=== PATIENT | female | born 1965 | race Caucasian/White ===

== ENCOUNTER 2025-06-20 19:28 | Emergency (ER) | payer BC, SELFPAY ==
[2025-06-20 19:32] VITALS: BP 148/84; PULSE 65; RESP 16; TEMP 36.6; O2SAT 97; BMI 26.3
[2025-06-20 19:56] LABS: Appearance Urine Turbid (Clear)
--- NOTE | 2025-06-20 20:35 | ED.GENADULT ---
HPI - General Adult General Chief complaint: Back Injury/Pain Stated complaint: Pain in Lower Back Time Seen by Provider: 06/20/25 20:33 History of Present Illness HPI narrative: nausea, back pain, especially in lower right. some lower abd cramping. on Friday had some blood in urine, spoke with her urologist today and was advised to be seen. hx of kidney stones. [facility] for urology. last took Aleve at 1500 59-year-old woman presenting to the emergency department with concern of hematuria, right flank pain and lower abdominal pain/cramping. Has been experiencing some nausea it would associate that with the discomfort. Does have a history of kidney stones including retrieval. She can not mention the stent without becoming tearful as that was very miserable experience. There has been some discussion of ?cleaning out? the other kidney as well. She was opting to wait for further problems. Last kidney stone was likely early summer. She does have images from September that show on 1 slice only a couple of stones around 4 mm each in the right renal cortex. Began with some pink urine 2 nights ago and then seemed a little better and then just really hit again today. She had been experiencing some chills as well and then lower abdominal cramping and also flank pain as mentioned. She says she was scolded for taking excessive believe would called in to triage line and recommended to be seen in the emergency department. She did take what sounds like around 400 mg of naproxen sodium at noon and also at 3 today. Both helped a little. Related Data Home Medications ?Medication ?Instructions ?Recorded ?Confirmed atenolol 25 mg tablet 25 mg PO DAILY 06/20/25 06/20/25 Allergies Allergy/AdvReac Type Severity Reaction Status Date / Time No Known Drug Allergies Allergy Verified 06/20/25 19:36 Review of Systems Status of ROS: Reports: 6 or more systems reviewed and unremarkable except as noted in History and below PFSH PFS Social History Smoking Status: Never smoker Do you use any of these nicotine containing products: None How often do you have a drink containing alcohol: never How often do you have six or more drinks on one occasion: Never AUDIT-C Alcohol total score: 0 Non-prescribed substance use: denies use service: No Exam Narrative: Exam Narrative: Pleasant. NAD. Laughs easily. Skin is warm and dry. Breathing easily and lungs appear clear. Heart in regular rate and rhythm. There is right-sided flank pain to percussion. Abdomen is soft and generally sore to palpation across the low abdomen. She is well-perfused peripherally. No edema. Const: Vital Signs, click to edit/add: Vital Signs - 24 hr 06/20/25 19:32 06/20/25 21:54 Temperature 98 F Pulse Rate [Pulse Oximeter] 65 Respiratory Rate 16 Blood Pressure [Ri t Upper Arm] 148/84 H 134/82 Pulse Oximetry 97 Oxygen Delivery Me thod Room Air Documenting provider has reviewed patient's vital signs: yes Course Vital Signs Vital signs: Initial Vital Signs Temperature 98 F 06/20/25 19:32 Temperature Source Temporal Artery Scan 06/20/25 19:32 Pulse Rate 65 06/20/25 19:32 Respiratory Rate 16 06/20/25 19:32 Blood Pressure 148/84 H 06/20/25 19:32 Blood Pressure Mean 105 06/20/25 19:32 Blood Pressure Position Sitting 06/20/25 19:32 Pulse Oximetry 97 06/20/25 19:32 Oxygen Delivery Method Room Air 06/20/25 19:32 Vital Signs Temperature 98 F 06/20/25 19:32 Pulse Rate 65 06/20/25 19:32 Respiratory Rate 16 06/20/25 19:32 Blood Pressure 148/84 H 06/20/25 19:32 Pulse Oximetry 97 06/20/25 19:32 Oxygen Delivery Method Room Air 06/20/25 19:32 Temperature 98 F 06/20/25 19:32 Pulse Rate 65 06/20/25 19:32 Respiratory Rate 16 06/20/25 19:32 Blood Pressure 134/82 06/20/25 21:54 Pulse Oximetry 97 06/20/25 19:32 Oxygen Delivery Method Room Air 06/20/25 19:32 Medications Administered Medications: Discontinued Medications Generic Name Dose Route Start Last Admin Trade Name Freq PRN Reason Stop Dose Admin Sodium Chloride 1,000 mls @ 1,000 mls/hr 06/20/25 21:16 06/20/25 23:06 0.9 % Sodium Chloride 1000 Ml IV 06/20/25 22:15 Infused .Q1H ONE Infusion Ceftriaxone Sodium 1 gm/ 100 mls @ 200 mls/hr 06/20/25 22:31 06/20/25 23:06 Sodium Chloride IVPB 06/20/25 22:32 Infused ONCE ONE Infusion Ondansetron HCl 4 mg 06/20/25 22:31 06/20/25 22:43 Ondansetron Odt 4 Mg Tab PO 06/20/25 22:32 4 mg ONCE ONE Administration Medical Decision Making MDM Narrative Medical decision making narrative: Symptoms seem more consistent with urinary tract infection but certainly a strong history for nephrolithiasis, ureteral stones. Would check urinalysis 1st which is still pending in see if that might be more convincing in direction or another. Could have nephritis though has not had any prodrome to suggest that. Vascular disruption? Is not high risk for this I would think. Mesenteric adenitis, diverticulitis. Pyelonephritis? Urinalysis returns with more signs of inflammation I would say than infection but maybe could be either. I think it would be with her history and concerns of potential next steps being further intervention, I would offer CT imaging. Also check standard labs. CT abdomen pelvis noncontrast independently reviewed by me looks to have a whitish, hazy irregularly shaped lesion in the right mid kidney. I see numerous calcifications throughout the pelvis and with bilateral renal stones but I am not seeing hydronephrosis or might otherwise think that had recently passed a stone. Labs are otherwise are pending Does note later that she had been feeling achy all over. Radiology over-read below INDICATION: Right-sided flank pain and hematuria TECHNIQUE: CT Abdomen and pelvis without i.v. contrast. Coronal and sagittal reformats were obtained. COMPARISON: None FINDINGS: Lower chest: Unremarkable. Liver: Unremarkable. Spleen: Unremarkable. Pancreas: Unremarkable. Gallbladder: Unremarkable. Kidney: Bilateral renal stones are present, measuring up to 4 mm. There is a focus of ill-defined calcification present within the right renal midzone cortex measuring 1.5 cm on axial images and may be a focus of layering milk of calcium within a cyst on coronal reformats. Adrenal: Unremarkable. Bowel: Severe diverticulosis of the sigmoid colon is present with no evidence of diverticulitis. The appendix is normal in appearance and size. Vascular: Unremarkable. Lymph: Unremarkable. Peritoneum: Unremarkable. No pneumoperitoneum is seen. No significant ascites is noted. Pelvis: The patient is status post prior hysterectomy. Soft tissue: Unremarkable. Bone: Unremarkable for age. IMPRESSIONS: 1. No CT correlate for the patient`s symptoms seen. 2. There is a focus of ill-defined calcification present within the right renal midzone cortex measuring 1.5 cm on axial images and may be a focus of layering milk of calcium within a cyst on coronal reformats. This can be confirmed with outpatient renal ultrasound. Dictated by Timothy Curtis MD @ 06/20/2025 9:43:01 PM Reassuring labs other than urinalysis as noted above. Her global symptoms suggest infection. I suppose this could also be some other viral process going on. Would give initial dosing though of Rocephin here as there is this strong stone history and possible infection in the urine. See patient discharge plan for further discussion Can continue to take ibuprofen or naproxen sodium for discomfort. Focus on hydration with water. Prescribing some Zofran from [facility] for nausea and cephalexin as your antibiotic. You did receive a dose of Rocephin here in the emergency department along with normal saline IV fluid. A urine culture will be pending here. We will call you if changes need to be made to your antibiotics. Discuss with your primary care or Urology about potentially obtaining an ultrasound of the right kidney to further characterize that calcific oddity. Suspicion is that it is <del>wearing</del> (layering) calcium within a cyst. You can access your records here through [facility] Return/be seen for marked increase in persistent pain, repeated vomiting, fever, pain lasting more than 5 days Lab Data Lab results reviewed: Yes I reviewed the patient's lab results Labs: Lab Results 06/20/25 06/20/25 Range/Units 07:40 21:45 WBC 6.21 (4.50-11.00) K/uL RBC 4.20 (4.00-5.20) m/uL Hgb 12.3 (12.0-16.0) gm/dL Hct 37.9 (33.0-51.0) % MCV 90 (80-100) fL MCH 29 (26-34) pg MCHC 33 (32-36) gm/dL RDW Coeff of Carmen 12.1 (11.5-15.5) % Plt Count 256 (140-440) K/uL Neut % (Auto) 46.6 (42.0-72.0) % Lymph % (Auto) 40.3 (20-44) % [place] % (Auto) 10.6 (0.0-11.0) % Eos % (Auto) 1.8 (0.0-7.0) % Baso % (Auto) 0.5 (0.0-3.0) % Neut # (Auto) 2.90 (1.7-7.0) K/uL Lymph # (Auto) 2.50 (0.90-2.90) K/uL [place] # (Auto) 0.70 (0.00-0.90) K/UL Eos # (Auto) 0.11 (0.00-0.50) K/uL Baso # (Auto) 0.03 (0.00-0.30) K/uL Abs Immat Gran (auto) 0.01 (0.00-0.30) K/uL Imm/Tot Granulo (auto) 0.2 % Sodium 140 (135-149) mmol/L Potassium 4.0 (3.6-5.1) mmol/L Chloride 106 (96-114) mmol/L Carbon Dioxide 27 (20-32) mmol/L Anion Gap 7 (7-15) mEq/L BUN 18 (7-30) mg/dL Creatinine 0.7 (0.5-1.5) mg/dL Estimated Creat Clear 46.73 Estimated GFR 98 ml/min Glucose 97 (60-115) mg/dL Calcium 9.2 (8.4-10.6) mg/dL Urine Color Yellow (Yellow) Urine Appearance Turbid A (Clear) Urine pH 6.5 (5.0-8.5) Ur Specific [place] 1.020 (1.000-1.030) Urine Protein 1+ A (Negative) Urine Glucose (UA) Negative (Negative) Urine Ketones Negative (Negative) Urine Blood 3+ A (Negative) Urine Nitrite Negative (Negative) Urine Bilirubin Negative (Negative) Urine Urobilinogen 1.0 (0.2-1.0) Ur Leukocyte Esterase 1+ A (Negative) Urine RBC 10-25 A (0-2) Urine WBC 2-5 (0-5) Ur Squamous Epith Cells Moderate A (None-Few) Urine Bacteria Moderate A (None) Discharge Plan Discharge Clinical Impression: UTI (urinary tract infection), Bilateral kidney stones Patient Disposition: Home w/ Parent or Adult Condition: Stable Additional Instructions: Can continue to take ibuprofen or naproxen sodium for discomfort. Focus on hydration with water. Prescribing some Zofran from [facility] for nausea and cephalexin as your antibiotic. You did receive a dose of Rocephin here in the emergency department along with normal saline IV fluid. A urine culture will be pending here. We will call you if changes need to be made to your antibiotics. Discuss with your primary care or Urology about potentially obtaining an ultrasound of the right kidney to further characterize that calcific oddity. Suspicion is that it is wearing calcium within a cyst. You can access your records here through [facility] Return/be seen for marked increase in persistent pain, repeated vomiting, fever, pain lasting more than 5 days Prescriptions: No Action atenolol 25 mg tablet 25 mg PO DAILY Follow Up/Referrals: Brooks Coleman MD [Primary Care Provider, Family Practice] Stand Alone Forms: Sennari Info Instructions
--- OUTSIDE RECORDS SUMMARY | 2025-06-20 21:11 | XMS_ITS | Data Portability ---
Author Organization [place] [facility], [facility] Address [address] [facility] [address] [place] [address] Assessment No assessment recorded. Plan of Treatment Reminders Order Date Submit Date Provider Last Modified By Organization Details Last Modified Time Details Appointments None record ed. Lab None record ed. Referral None record ed. Procedures None record ed. Surgeries None record ed. Imaging None record ed. Medication Orders None record ed. Patient TargetsNo targets recorded. Patient Instructions Encounter Date Encounter Id Patient Instructions Last Modified By Organization Details Last Modified Time 09/25/2022 [id number] Patient is a 56-year-old female who presents today for stent removal. Patient underwent R URS/lithotripsy with Dr. Castillo on 09/11/22. Patient tolerated stent removal well. We did discuss return precautions and anticipatory guidance. We did briefly look at her stone analysis, did grow 20% calcium phosphate. After review of her BMPs through [facility], does appear that her calcium is in the 10.0 range. Did recommend she sets up a morning, fasting BMP and PTH level. Did send follow-up to her primary urologist, Melyssa Eason PA-C. [email or web address] Not available 09/25/2022 14:49:48 Reason for Referral None Reported. Results Created Date Observation Date Name Description Value Unit Range Abnormal Flag Note LastModifiedBy Organization Detail LastModifiedTime 09/11/1909/11/2022 XR, pyelo gram No observ ation record ed. [facility] [address], [place], [address], 09/12/2022 13:31:45 10/26/19 23 10/25/2022 US, renal No observ ation record ed. [email or web address] [facility] [address], [place], [address], 11/15/2022 13:51:51 11/15/19 23 11/14/2022 CT, chest + abdom en + pelvi s, w/o contr ast No observ ation record ed. [facility] [address], [place], [address], 11/18/2022 10:28:56 11/22/19 23 11/21/2022 CT, chest , w/o contr ast No observ ation record ed. [facility] [address], [place], [address], 11/21/2022 16:39:42 02/19/20 23 02/18/2023 CT, abdom en + pelvi s, w/wo contr ast No observ ation record ed. [facility] [address], [place], [address], 02/18/2023 12:37:59 03/23/20 24 03/18/2024 CT, abdom en + pelvi s, w/o contr ast No observ ation record ed. [email or web address] [facility] [address], [place], [address], 04/01/2024 16:19:00 10/01/19 25 10/01/2024 CT, abdom en + pelvi s, w/o contr ast No observ ation record ed. [facility] [address], [place], [address], 10/05/2024 19:31:24 Result Notes None recorded. Procedures Surgical History Date Name Laterality Status Provider Name and Address Organization Details Recorded Time 09/25/19 23 Cystoscopy with foreign body/stent removal completed RIGOBERTO LAZAR [address] [place] [address],[address], [place], [address], [place] [facility] 09/25/2022 14:48:28 08/18/18 91 Partial Hysterectomy completed Chantale DIAZ - [facility] 09/25/2022 12:34:14 Imaging Results None recorded. Procedure Notes None recorded. Medical Equipment None Reported. Allergies No known drug allergies Medications Name Sig Start Date Stop Date Status Note LastModified by Organization Details LastModified Time trazodone 50 mg tablet active Not Available Not Available No t Available ondansetron HCl 4 mg tablet 09/25 completed Not Available Not Available Not Available atenolol 25 mg tablet TAKE 1 TABLET BY MOUTH EVERY DAY active Not Available Not Available No t Available sulfamethoxaz ole 800 mg-trimethopr im 160 mg tablet TAKE 1 TABLET BY MOUTH TWICE DAILY FOR 3 DAYS 09/25 completed Not Available Not Available Not Available ketorolac 10 mg tablet 09/25 completed Not Available Not Available Not Available tamsulosin 0.4 mg capsule active Not Available Not Available Not Available oxybutynin chloride ER 5 mg tablet,extend ed release 24 hr active Not Available Not Available Not Available oxycodone 5 mg tablet 09/25 completed Not Available Not Available Not Available Vitals Date Recorded Body height Body mass index (BMI) Body weight Provider Name and Address Organization Details Last Updated DateTime 09/25/2022 157.48 cm 25.8 kg/m2 66528.52 g Chantaleher Hager [facility] 09/25/2022 12:29:59 Social History Question Answer Notes LastModified by Organizat ion Details LastModified Time Tobacco Smoking Status Never Smoker Chantale Hager [facility] 09/25/2022 12:32:38 What Is Your Level Of Caffeine Consumption? Moderate [email or web address] Information not available 09/25/2022 Race White [email or web address] Information no t available 09/25/2022 Ethnicity Not /Lati no [email or web address] Information not available 09/25/2022 Preferred Language Mohawk [email or web address] Information not available 09/25/2022 Recreational Drug Use No [email or web address] Information not available 09/25/2022 Could You Be ? No [email or web address] Information not available 09/25/2022 What Was The Date Of Your Most Recent Tobacco Screening? 09/25/2022 [email or web address] Information not available 09/25/2022 What Is Your Relationship Status? [email or web address] Information not available 09/25/2022 Are You Sexually Active? Yes [email or web address] Information not available 09/25/2022 Has Tobacco Cessation Counseling Been Provided? No [email or web address] Information not available 09/25/2022 Sex: Unknown Functional Status Question Answer Note LastModified by Organizat ion Details LastModified Time Do you use any illicit or recreational drugs? No [email or web address] Information not available 09/25/2022 Do you or have you ever used any other forms of tobacco or nicotine? No [email or web address] Information not available 09/25/2022 What is your level of alcohol consumption? Occasional [email or web address] Information not available 09/25/2022 Are you currently employed? Yes [email or web address] Information not available 09/25/2022 Mental Status None recorded. Family History Relationship Description Onset Age of this Age Resolved Age Notes LastModified by Organization Details LastModified Time Brother Kidney stone [email or web address] Not av ailable 09/25/2022 12:31:58 Father Kidney stone [email or web address] Not pastor ilable 09/25/2022 12:32:04 Sister Kidney stone [email or web address] Not pastor ilable 09/25/2022 12:32:08 Medical History Condition Response Diabetes N Sexually Transmitted Infection N Bleeding Disorder N Other N High Blood Pressure Y Kidney Stones Y High Cholesterol N GERD/Acid Reflux N Heart Disease N Cancer N Lung Disease N Depression N Gynecological HistoryNo gynecological history recorded. Obstetrics History GPAL:G 0 P 0 0 0 0 Past Encounters Encounter ID Performer Location Encounter Start Date Encounter Closed Date Diagnosis/Indication Diagnosis SNOMED-CT Code Diagnosis ICD10 Code Diagnosis IMO Codes Diagnosis Note [id number] RIGOBERTO LAZAR [facility] [address] [facility],[address] [address] 09/25/2022 12:13:33 09/25/2022 15:00:22 History of calculus of kidney 493512723 Z87.442 Foreign seble dy in genitourinary tract 25045261 T19.9XXA Health Concerns Section Related Observation LastModified by Organization Detai ls LastModified Time None Recorded Concern Status LastModified by Organization Details LastModified Time None Recorded Advance Directives Directive None Recorded Payers Insurance Date Sequence Insurance Name Policy Number Policy Tarango Covered Member ID Tarango Member ID Guarantor Name 09/23/2022 1 [facility] [id number] Svetlana Landis [id number] Svetlana Landis Notes Date Note Type Note Provider Name and Address Organization Details Recorded Time 09/25/2022 text/html ROS as noted in the HPI Patient is a 56-year-old female that presents today for stent removal. Patient underwent R URS/lithotripsy with Dr. Castillo on 09/11/22. Patient has been doing well at home, denies any fevers or chills. Has had some ongoing urgency, frequency and gross hematuria. Patient does have history of recurrent stone formation. CONSTANCE STANLEY, RIGOBERTO [address] [place] [address],[address], [place], [address], [facility] 09/25/2022 14:50:17 OBGyn Episode No OBEpisode recorded.
--- NOTE | 2025-06-20 21:16 | CRLHL7_ITS ---
For Patients: As a result of the Century Cures Act, medical imaging exams and procedure reports are released immediately into your electronic medical record. You may view this report before your referring provider. If you have questions, please contact your health care provider. INDICATION: Right-sided flank pain and hematuria TECHNIQUE: CT Abdomen and pelvis without i.v. contrast. Coronal and sagittal reformats were obtained. COMPARISON: None FINDINGS: Lower chest: Unremarkable. Liver: Unremarkable. Spleen: Unremarkable. Pancreas: Unremarkable. Gallbladder: Unremarkable. Kidney: Bilateral renal stones are present, measuring up to 4 mm. There is a focus of ill-defined calcification present within the right renal midzone cortex measuring 1.5 cm on axial images and may be a focus of layering milk of calcium within a cyst on coronal reformats. Adrenal: Unremarkable. Bowel: Severe diverticulosis of the sigmoid colon is present with no evidence of diverticulitis. The appendix is normal in appearance and size. Vascular: Unremarkable. Lymph: Unremarkable. Peritoneum: Unremarkable. No pneumoperitoneum is seen. No significant ascites is noted. Pelvis: The patient is status post prior hysterectomy. Soft tissue: Unremarkable. Bone: Unremarkable for age. IMPRESSIONS: 1. No CT correlate for the patient`s symptoms seen. 2. There is a focus of ill-defined calcification present within the right renal midzone cortex measuring 1.5 cm on axial images and may be a focus of layering milk of calcium within a cyst on coronal reformats. This can be confirmed with outpatient renal ultrasound. Dictated by Timothy Curtis MD @ 06/20/2025 9:43:01 PM Please note that all CT scans at this facility use dose modulation, iterative reconstruction, and/or weight-based dosing when appropriate to reduce radiation dose to as low as reasonably achievable. Dictated by: Timothy Curtis MD @ 06/20/2025 21:43:04 (Electronically Signed)
[2025-06-20 21:54] VITALS: BP 134/82
[2025-06-20 22:02] LABS: Hematocrit* 37.9 % (33.0-51.0); Hemoglobin* 12.3 gm/dL (12.0-16.0); Immature Granulocytes Abs Auto 0.01 K/uL (0.00-0.30); Immature Granulocytes Pct Auto 0.2 %; Lymphocytes Absolute Auto 2.50 K/uL (0.90-2.90); Mean Corpuscular HGB Conc 33 gm/dL (32-36); Mean Corpuscular Hemoglobin 29 pg (26-34); Mean Corpuscular Volume 90 fL (80-100); RDW Coefficient of Variation % 12.1 % (11.5-15.5); Red Blood Count* 4.20 m/uL (4.00-5.20); White Blood Count* 6.21 K/uL (4.50-11.00)
[2025-06-20 22:07] LABS: Slide Review Reflex No
[2025-06-20 22:10] LABS: Chloride* 106 mmol/L (96-114); Sodium* 140 mmol/L (135-149)
[2025-06-20 22:11] LABS: Potassium* 4.0 mmol/L (3.6-5.1)
[2025-06-20 22:13] LABS: Blood Urea Nitrogen* 18 mg/dL (7-30); Creatinine* 0.7 mg/dL (0.5-1.5); Est. Creatinine Clearance* 46.73; Estimated Glomerular Filt Rate 98 ml/min
[2025-06-20 22:14] LABS: Anion Gap 7 mEq/L (7-15); Calcium* 9.2 mg/dL (8.4-10.6); Carbon Dioxide* 27 mmol/L (20-32); Glucose* 97 mg/dL (60-115)
[2025-06-20] MEDS: cefTRIAXone 1 GM in 0.9 % SODIUM CHLORIDE Mini-bag 100 ML IVPB (22:43)
[2025-06-20] MEDS: ONDANSETRON ODT 4 MG TAB PO (22:43)
== END 2025-06-20 23:09 | disposition home or self-care (01) ==
PROVIDERS: Emergency Provider Family Medicine; PCP Family Medicine
DX: N39.0 Urinary tract infection, site not specified (principal); N20.0 Calculus of kidney
CPT/HCPCS: 36415; 74176; 80048; 81001; 85025; 87086; 96365; 99284; A9270; J0696; J7030

== ENCOUNTER 2025-07-12 11:41 | Emergency (ER) | payer BC, SELFPAY ==
[2025-07-12 12:03] VITALS: BP 153/99; PULSE 73; RESP 20; TEMP 36.8; O2SAT 98; BMI 26.5
--- NOTE | 2025-07-12 12:21 | CRLHL7_ITS ---
For Patients: As a result of the Century Cures Act, medical imaging exams and procedure reports are released immediately into your electronic medical record. You may view this report before your referring provider. If you have questions, please contact your health care provider. INDICATION: Worsening right lower quadrant pain. TECHNIQUE: CT abdomen and pelvis acquired with 100 cc Omnipaque 350 IV contrast. COMPARISON: 06/20/2025. FINDINGS: There is indeterminate clustered nodularity within the lingula which in retrospect was present on prior examination and new compared to 2019. Short-term follow-up chest CT is recommended. The liver is unremarkable. No definite liver lesion is seen. The gallbladder is absent. No biliary ductal dilatation. Spleen is normal in size. The pancreas is without stranding or main ductal dilatation. The adrenal glands are unremarkable. New moderate right hydronephrosis secondary 5 millimeter stone within the mid to distal right ureter. Delayed right nephrogram is noted. Mild right perinephric stranding. Multiple small nonobstructing right renal stones are noted. Subcentimeter hypoattenuating lesions likely represent cysts. The hyperdense lesion on the prior corresponds to presumed complex cystic lesion on the current. A 3 millimeter nonobstructing left renal stone is seen. No left hydronephrosis. There are calcifications within the pelvis which are in similar location compared to the prior and therefore favored to represent phleboliths. Urinary bladder is partially distended. Sigmoid diverticulosis without evidence of acute diverticulitis. The appendix is nondilated without evidence of acute appendicitis. The small bowel is nondilated. The stomach is partially distended. No free air. No ascites. No organized drainable fluid collection. Small fat containing umbilical hernia. No lymphadenopathy is seen. Uterus is absent. Aorta is nonaneurysmal. Bone windows demonstrate no suspicious lytic or sclerotic lesion. No fracture IMPRESSION: 1. New moderate right hydronephrosis secondary to a 5 millimeter obstructing stone within the mid-distal right ureter. 2. Bilateral nonobstructing renal calculi. 3. Colonic diverticulosis without CT evidence of acute diverticulitis. 4. New indeterminate cluster of nodularity within the lingula compared to 2019. Short-term follow-up chest CT recommended. Please note that all CT scans at this facility use dose modulation, iterative reconstruction, and/or weight-based dosing when appropriate to reduce radiation dose to as low as reasonably achievable. Dictated by Jim Padgett MD @ 07/12/2025 1:03:54 PM (Electronically Signed)
[2025-07-12 12:37] LABS: Hematocrit* 38.4 % (33.0-51.0); Hemoglobin* 12.7 gm/dL (12.0-16.0); Immature Granulocytes Abs Auto 0.00 K/uL (0.00-0.30); Immature Granulocytes Pct Auto 0.0 %; Lymphocytes Absolute Auto 1.63 K/uL (0.90-2.90); Mean Corpuscular HGB Conc 33 gm/dL (32-36); Mean Corpuscular Hemoglobin 29 pg (26-34); Mean Corpuscular Volume 88 fL (80-100); RDW Coefficient of Variation % 11.8 % (11.5-15.5); Red Blood Count* 4.35 m/uL (4.00-5.20); White Blood Count* 7.14 K/uL (4.50-11.00)
[2025-07-12 12:40] LABS: Slide Review Reflex No
[2025-07-12] MEDS: MORPHINE 4 MG/ML INJ IVP (12:40)
[2025-07-12] MEDS: ONDANSETRON 2 MG/ML inj 4 MG IVP (12:41)
[2025-07-12 12:52] LABS: Albumin* 4.4 g/dL (3.3-5.0); Chloride* 100 mmol/L (96-114); Potassium* 4.0 mmol/L (3.6-5.1); Sodium* 139 mmol/L (135-149)
[2025-07-12 12:55] LABS: Alanine Aminotransferase* 34 U/L (4-35); Alkaline Phosphatase* 118 U/L (40-150); Anion Gap 13 mEq/L (7-15); Aspartate Amino Transferase* 29 U/L (12-35); Bilirubin Total* 0.9 mg/dL (0.1-1.5); Blood Urea Nitrogen* 20 mg/dL (7-30); Calcium* 9.8 mg/dL (8.4-10.6); Carbon Dioxide* 26 mmol/L (20-32); Creatinine* 0.9 mg/dL (0.5-1.5); Est. Creatinine Clearance* 46.73; Estimated Glomerular Filt Rate 73 ml/min; Glucose* 114 mg/dL (60-115); Total Protein* 7.4 g/dL (6.0-8.3)
--- NOTE | 2025-07-12 13:28 | ED_ITS ---
HPI - Abdominal Pain General Date Seen: 07/12/25 Chief Complaint: Abdominal Pain Stated Complaint: Lower abdominal pain Time Seen by Provider: 07/12/25 12:05 Source: patient Mode of arrival: ambulatory Limitations: no limitations History of Present Illness HPI narrative: Patient is a 59-year-old female with a history of nephrolithiasis presenting to the emergency department for right lower quadrant abdominal pain. She states this pain has been going on for 4 weeks. Was not getting better so was seen in the emergency department on 06/20/2025. At that time no abnormalities were seen on imaging. She went home and she states the pain eventually did go way but then with past few days has come back it is getting worse. Pain is all in her right lower quadrant. Does not seem to radiate anywhere. Denies any dysuria, hematuria, constipation, diarrhea, fevers, chills. States occasionally the pain is so bad she gets nauseated but has not had any vomiting. States she has not had much of an appetite today. Took Aleve at home without any improvement in her symptoms. Has had previous cholecystectomy, hysterectomy. States she still has her appendix. No other concerns noted at this time. Related Data Home Medications ?Medication ?Instructions ?Recorded ?Confirmed atenolol 25 mg tablet 25 mg PO DAILY 06/20/25 1204/28 Allergies Allergy/AdvReac Type Severity Reaction Status Date / Time No Known Drug Allergies Allergy Verified 06/20/25 19:36 Review of Systems Status of ROS Reports: 10 or more systems reviewed and unremarkable except as noted in History and below [facility] Social History Smoking Status: Never smoker Do you use any of these nicotine containing products: None How often do you have a drink containing alcohol: never How often do you have six or more drinks on one occasion: Never AUDIT-C Alcohol total score: 0 Non-prescribed substance use: denies use service: No Exam Narrative: Exam Narrative: Const: Well-nourished, Well-developed, in moderate distress Eyes: PERRL, no conjunctival injection, and symmetrical lids HENT: Atraumatic external nose and ears. Moist mucous membranes. Neck: Symmetric, trachea midline, No thyromegaly. CVS: RRR, No murmurs or gallops. Peripheral pulses 2+ and equal in all extremities RESP: Unlabored respiratory effort. Clear to auscultation bilaterally. GI: Mild right lower quadrant tenderness at about McBurney's point. Nondistended, No rebound or guarding. MSK:Extremities w/o deformity, Normal Active ROM Skin: Warm, Dry. No rashes or lesions. Neuro: Normal Muscle tone, No focal neurological deficits. Psych: Awake, Alert, & Oriented x3. Appropriate mood and affect. Const: Vital Signs, click to edit/add: Vital Signs - 24 hr 07/12/25 12:03 Temperature 98.2 F Pulse Rate [Pulse Oximeter] 73 Respiratory Rate 20 Blood Pressure [Ri ght Upper Arm] 153/99 H Pulse Oximetry 98 Oxygen Delivery Me thod Room Air Course Vital Signs Vital signs: Initial Vital Signs Temperature 98.2 F 07/12/25 12:03 Temperature Source Temporal Artery Scan 07/12/25 12:03 Pulse Rate 73 07/12/25 12:03 Respiratory Rate 20 07/12/25 12:03 Blood Pressure 153/99 H 07/12/25 12:03 Blood Pressure Mean 117 H 07/12/25 12:03 Pulse Oximetry 98 07/12/25 12:03 Oxygen Delivery Method Room Air 07/12/25 12:03 Vital Signs Temperature 98.2 F 07/12/25 12:03 Pulse Rate 73 07/12/25 12:03 Respiratory Rate 20 07/12/25 12:03 Blood Pressure 153/99 H 07/12/25 12:03 Pulse Oximetry 98 07/12/25 12:03 Oxygen Delivery Method Room Air 07/12/25 12:03 Temperature 98.2 F 07/12/25 12:03 Pulse Rate 73 07/12/25 12:03 Respiratory Rate 20 07/12/25 12:03 Blood Pressure 153/99 H 07/12/25 12:03 Pulse Oximetry 98 07/12/25 12:03 Oxygen Delivery Method Room Air 07/12/25 12:03 Medications Administered Medications: Discontinued Medications Generic Name Dose Route Start Last Admin Trade Name Freq PRN Reason Stop Dose Admin Morphine Sulfate 4 mg 07/12/25 12:21 07/12/25 12:40 Morphine 4 Mg/Ml Inj IVP 07/12/25 12:22 4 mg ONCE ONE Administration Ondansetron HCl 4 mg 07/12/25 12:22 07/12/25 12:41 Ondansetron 2 Mg/Ml Inj IVP 07/12/25 12:23 4 mg ONCE ONE Administration MDM - Abdominal Pain MDM Narrative Medical decision making narrative: Patient is a 59-year-old female presenting for right lower quadrant abdominal pain. Differential at this time includes appendicitis, nephrolithiasis. Is not having much pain in her pelvis I have low concern about ovarian torsion additionally considering age. Did have a normal bowel movement today but could possibly still be an early SBO. Will do CT scan to better evaluate. Will do IV contrast this time. Will also order CBC, CMP, urinalysis. Zofran given for nausea and morphine for pain. She is feeling much better after the medication. CBC and CMP showed no concerning abnormalities. Lipase within normal limits. CT scan returned interpreted by myself and the radiologist showing a 5 mm obstructing stone on the right in the mid-distal right ureter. No other concerning abnormality seen. There are new nodule seen in the lungs which and outpatient follow-up CT can be done. Urinalysis shows blood in the urine with trace leukocyte esterases and tendon 25 white blood cells. She is not having any other urinary symptoms. I do not believe she has a UTI. She is safe for discharge. I informed her to follow up with her primary care provider. She is agreeable to this plan. Lab Data Labs: Lab Results 07/12/25 07/12/25 Range/Units 12:30 13:11 WBC 7.14 (4.50-11.00) K/uL RBC 4.35 (4.00-5.20) m/uL Hgb 12.7 (12.0-16.0) gm/dL Hct 38.4 (33.0-51.0) % MCV 88 (80-100) fL MCH 29 (26-34) pg MCHC 33 (32-36) gm/dL RDW Coeff of Carmen 11.8 (11.5-15.5) % Plt Count 228 (140-440) K/uL Neut % (Auto) 67.6 (42.0-72.0) % Lymph % (Auto) 22.8 (20-44) % [place] % (Auto) 8.4 (0.0-11.0) % Eos % (Auto) 0.8 (0.0-7.0) % Baso % (Auto) 0.4 (0.0-3.0) % Neut # (Auto) 4.82 (1.7-7.0) K/uL Lymph # (Auto) 1.63 (0.90-2.90) K/uL [place] # (Auto) 0.60 (0.00-0.90) K/UL Eos # (Auto) 0.06 (0.00-0.50) K/uL Baso # (Auto) 0.03 (0.00-0.30) K/uL Abs Immat Gran (auto) 0.00 (0.00-0.30) K/uL Imm/Tot Granulo (auto) 0.0 % Sodium 139 (135-149) mmol/L Potassium 4.0 (3.6-5.1) mmol/L Chloride 100 (96-114) mmol/L Carbon Dioxide 26 (20-32) mmol/L Anion Gap 13 (7-15) mEq/L BUN 20 (7-30) mg/dL Creatinine 0.9 (0.5-1.5) mg/dL Estimated Creat Clear 46.73 Estimated GFR 73 ml/min Glucose 114 (60-115) mg/dL Calcium 9.8 (8.4-10.6) mg/dL Total Bilirubin 0.9 (0.1-1.5) mg/dL AST 29 (12-35) U/L ALT 34 (4-35) U/L Alkaline Phosphatase 118 (40-150) U/L Total Protein 7.4 (6.0-8.3) g/dL Albumin 4.4 (3.3-5.0) g/dL Lipase 41 (23-300) U/L Urine Color Yellow (Yellow) Urine Appearance Cloudy A (Clear) Urine pH 7.5 (5.0-8.5) Ur Specific [place] 1.015 (1.000-1.030) Urine Protein Negative (Negative) Urine Glucose (UA) Negative (Negative) Urine Ketones Negative (Negative) Urine Blood 3+ A (Negative) Urine Nitrite Negative (Negative) Urine Bilirubin Negative (Negative) Urine Urobilinogen 0.2 (0.2-1.0) Ur Leukocyte Esterase Trace A (Negative) Urine RBC >100 A (0-2) Urine WBC 10-25 A (0-5) Ur Squamous Epith Cells None (None-Few) Urine Bacteria Few A (None) Imaging Data CT scan abdomen pelvis: Attestation: I have reviewed the pertinent imaging results. Radiologist's impression: 1. New moderate right hydronephrosis secondary to a 5 millimeter obstructing stone within the mid-distal right ureter. 2. Bilateral nonobstructing renal calculi. 3. Colonic diverticulosis without CT evidence of acute diverticulitis. 4. New indeterminate cluster of nodularity within the lingula compared to 2019. Short-term follow-up chest CT recommended. Please note that all CT scans at this facility use dose modulation, iterative reconstruction, and/or weight-based dosing when appropriate to reduce radiation dose to as low as reasonably achievable. Discharge Plan Discharge Clinical Impression: Urolithiasis Qualifiers: Urinary calculus location: ureter Qualified Code(s): N20.1 - Calculus of ureter Patient Disposition: Home, Self-Care Condition: Improved Instructions: How to Strain Your Urine (ED) Additional Instructions: You have a new obstructing kidney stone. I cannot say for certain that this was causing your previous pain but is definitely causing your current pain. Take the Percocet as needed for pain. Recommend following up with your urologist as this stone may not pass on its own due to the size. Also saw some nodules in your lungs. These are most frequently benign but is recommending follow-up with primary care provider about this. You can pick pulling machine tender the Percocet from [employer]. Also provided Zofran as needed for nausea. Prescriptions: No Action atenolol 25 mg tablet 25 mg PO DAILY Follow Up/Referrals: Brooks Coleman MD [Primary Care Provider, Family Practice] Stand Alone Forms: [employer] Info Instructions
[2025-07-12 13:36] LABS: Appearance Urine Cloudy (Clear)
[2025-07-12 14:33] VITALS: PULSE 78; RESP 16; O2SAT 96
== END 2025-07-12 14:35 | disposition home or self-care (01) ==
PROVIDERS: Emergency Provider Student in an Organized Health Care Education/Training Program; PCP Family Medicine
DX: N13.2 Hydronephrosis with renal and ureteral calculous obstruction (principal); Z90.49 Acquired absence of other specified parts of digestive tract; Z90.710 Acquired absence of both cervix and uterus
CPT/HCPCS: 36415; 74177; 80053; 81001; 82565; 83690; 85025; 87086; 96374; 96375; 99284; 99285; J2270; J2405; Q9967